=== PATIENT | female | born 1995 | race Caucasian/White ===

== ENCOUNTER 2019-09-17 15:20 | Emergency (ER) | payer OTHER, SELFPAY ==
[~2019-09-17] VITALS: Ht 160 cm; Wt 85.3 kg
[2019-09-17 15:34] VITALS: BP 137/77
--- NOTE | 2019-09-17 15:41 | NUR ---
C/O FEVER, BODY ACHES, FATIGUE X1 DAY. TEMP AT THIS TIME 99.8. TYLENOL LAST TAKEN @ 1345 TODAY. PT DENIES SOB, COUGH, CHEST PAIN, N/V.
--- NOTE | 2019-09-17 15:49 | NUR ---
NORMAN BOSE EVALUATING PT IN TENT
--- NOTE | 2019-09-17 15:50 | NUR ---
COVID SWAB COLLECTED AND WALKED TO LAB
[2019-09-17 15:57] VITALS: BP 137/77
--- NOTE | 2019-09-17 15:57 | NUR ---
Patient discharged with v/s stable. Written and verbal after care instructions given and explained. Patient alert, oriented and verbalized understanding of instructions. Carried with steady gait. All questions addressed prior to discharge. ID band removed. Patient advised to follow up with PMD. Rx of TYLENOL, ROBUTUSSIN, ACETAMINOPHEN given. Patient educated on indication of medication including possible reaction and side effects. Opportunity to ask questions provided and answered.
== END 2019-09-17 15:57 | disposition home or self-care (01) ==
LOC: MED 15:20
DX: B34.9 Viral infection, unspecified (principal); Z20.828 Contact with and (suspected) exposure to other viral communicable diseases
CPT/HCPCS: 99283; U0003

== ENCOUNTER 2019-09-19 18:51 | Emergency (ER) | payer OTHER, SELFPAY ==
[~2019-09-19] VITALS: Ht 160 cm; Wt 85.3 kg
[2019-09-19 19:07] VITALS: BP 121/85
--- NOTE | 2019-09-19 19:11 | NUR ---
triaged and waiting in tent for MSE.
--- NOTE | 2019-09-19 19:43 | NUR ---
Patient discharged with v/s stable. Written and verbal after care instructions given and explained. Patient verbalized understanding. Ambulatory with steady gait. All questions addressed prior to discharge. Advised to follow up with PMD.
== END 2019-09-19 19:43 | disposition home or self-care (01) ==
LOC: MED 18:51
DX: R50.9 Fever, unspecified (principal); M79.10 Myalgia, unspecified site; Z90.49 Acquired absence of other specified parts of digestive tract; Z20.828 Contact with and (suspected) exposure to other viral communicable diseases
CPT/HCPCS: 99283; U0003

== ENCOUNTER 2020-02-25 02:16 | Emergency (ER) | payer OTHER, SELFPAY ==
[~2020-02-25] VITALS: Ht 162.6 cm; Wt 86.2 kg
[2020-02-25 02:41] VITALS: BP 133/73
--- NOTE | 2020-02-25 02:42 | NUR ---
TO [facility]
--- NOTE | 2020-02-25 02:55 | NUR ---
SEEN AND EXAMINED BY TATIANA WITH ORDERS, CARRIED OUT
[2020-02-25] MEDS ORDERED: KETOROLAC 60 MG/2 ML VIAL IM ONE (03:00)
--- NOTE | 2020-02-25 03:05 | NUR ---
MEDICATED PER ERMDS ORDER, TOLERATED WELL.
--- NOTE | 2020-02-25 03:20 | NUR ---
RESULT BACK AND NOTED BY ERMD AND FOR D/C
--- NOTE | 2020-02-25 03:37 | NUR ---
PTS RIGHT ARM PLACED IN A POSTERIOR ARM SPLINT. PTS ARM WAS ALSO PLACED IN A SHOULDER SLING. PTS [facility] WNL.
[2020-02-25 04:00] VITALS: BP 133/73
== END 2020-02-25 04:00 | disposition home or self-care (01) ==
LOC: MED 02:16
DX: M25.521 Pain in right elbow (principal); Z90.49 Acquired absence of other specified parts of digestive tract; Z98.890 Other specified postprocedural states
CPT/HCPCS: 29105; 73080; 96372; 99283; J1885

== ENCOUNTER 2020-10-28 17:21 | Emergency (ER) | payer OTHER ==
[~2020-10-28] VITALS: Ht 160 cm; Wt 86.2 kg
[2020-10-28 17:35] VITALS: BP 139/91
--- NOTE | 2020-10-28 17:43 | NUR ---
BIB SELF C/O CONGESTION, HEAD PRESSURE X TODAY. PMH: DENIES. DENIES N/V/D; SKIN IS PINK/WARM/DRY; AAOX4 WITH EVEN AND STEADY GAIT; LUNGS CLEAR BL; HR EVEN AND REGULAR; PT DENIES ANY FEVER, CP, SOB, OR COUGH AT THIS TIME; PATIENT STATES PAIN OF 1/10 AT THIS TIME.
--- NOTE | 2020-10-28 18:10 | NUR ---
PT KARTHIKID SWABBED AND WALKED TO LAB
[2020-10-28] MEDS ORDERED: FLUT0.0560 NS (18:13)
[2020-10-28 18:18] VITALS: BP 130/84
--- NOTE | 2020-10-28 18:18 | NUR ---
Patient discharged with v/s stable. Written and verbal after care instructions given [facility] RHINITIS and explained. Patient alert, oriented and verbalized understanding of instructions. Ambulatory with steady gait. All questions addressed prior to discharge. ID band removed. Patient advised to follow up with PMD. Rx of FLUTICASONE INHALER given. Patient educated on indication of medication including possible reaction and side effects. Opportunity to ask questions provided and answered.
== END 2020-10-28 18:18 | disposition home or self-care (01) ==
LOC: MED 17:21
DX: R09.81 Nasal congestion (principal); Z20.822 Contact with and (suspected) exposure to COVID-19
CPT/HCPCS: 99283

== ENCOUNTER 2023-03-27 14:40 | Emergency (ER) | payer OTHER ==
[~2023-03-27] VITALS: Ht 160 cm; Wt 86.2 kg
[~2023-03-27 14:40] MED LIST: FLUT16SP9 NS
[2023-03-27 14:55] VITALS: BP 140/77; PULSE 111; RESP 18; TEMP 100; O2SAT 97
[2023-03-27] MEDS ORDERED: PENI500T20 PO (15:29)
[2023-03-27] MEDS ORDERED: IBUP-2213 PO (15:29)
[2023-03-27] MEDS: NACL 0.9% 1,000 ML IV ONE (15:44)
[2023-03-27] MEDS ORDERED: KETOROLAC 30 MG/ML VIAL IM ONE (16:05)
[2023-03-27 16:06] LABS: FLU A ANTIGEN negative (NEGATIVE); FLU B ANTIGEN NEGATIVE (NEGATIVE)
[2023-03-27] MEDS: KETOROLAC 30 MG/ML VIAL IVP ONE (16:43)
[2023-03-27] MEDS: ACETAMINOPHEN EXTRA STRENGTH 500 MG TAB PO ONE (16:43)
[2023-03-27 16:45] VITALS: BP 135/70; PULSE 88; RESP 16; TEMP 98.9; O2SAT 98
== END 2023-03-27 16:45 | disposition home or self-care (01) ==
LOC: MED 14:40
DX: J02.8 Acute pharyngitis due to other specified organisms (principal); B96.89 Other specified bacterial agents as the cause of diseases classified elsewhere; Z20.822 Contact with and (suspected) exposure to COVID-19; Z98.890 Other specified postprocedural states; Z79.899 Other long term (current) drug therapy
CPT/HCPCS: 81025; 87081; 87426; 87804; 96360; 99283; J7030